=== PATIENT | male | born 1975 | race Caucasian/White ===

== ENCOUNTER 2022-08-04 07:25 | Day surgery (SDC) | payer BC ==
[~2022-08-04 07:25] MED LIST: Midazolam 1 MG/ML 2 ML SDV ONE; Propofol 200 MG/20 ML SDV ONE; fentaNYL 50 MCG/ML SDV ONE
[2022-08-04] MEDS ORDERED: Lactated Ringers 1,000 ML IV SCH (08:00)
[2022-08-04] MEDS ORDERED: Propofol 200 MG/20 ML SDV ONE (10:05)
== END 2022-08-04 11:20 | disposition home or self-care (01) ==
LOC: JP.SDS 07:25
PROVIDERS: ATTEND Student in an Organized Health Care Education/Training Program
DX: Z12.11 Encounter for screening for malignant neoplasm of colon (principal); I49.9 Cardiac arrhythmia, unspecified
CPT/HCPCS: 45378; J2250; J2704; J3010; J7120